=== PATIENT | male | born 1980 | race Caucasian/White ===

== ENCOUNTER 2017-04-21 04:16 | Emergency (ER) | payer OTHER ==
[~2017-04-21] VITALS: Ht 185.4 cm; Wt 113.6 kg
[2017-04-21] MEDS ORDERED: ONDANSETRON 2MG/ML, 2ML IVPush ONE (05:00)
[2017-04-21] MEDS ORDERED: HYDROmorphone 1 MG/ML, 1ML IVPush PRN (05:00)
[2017-04-21] MEDS ORDERED: SODIUM CHLORIDE 0.9% 1,000ML IVBOLUS ONE (05:00)
[2017-04-21] MEDS ORDERED: SODIUM CHLORIDE FLUSH 10ML SYR IVF ONE (05:00)
[2017-04-21] MEDS ORDERED: HYDROmorphone 1 MG/ML, 1ML ONE (05:11)
[2017-04-21] MEDS ORDERED: ONDANSETRON 2MG/ML, 2ML ONE (05:11)
[2017-04-21 05:25] LABS: HEMATOCRIT 45.3 % (39.2-51.8); WHITE BLOOD COUNT 13.6 x10^3/uL (3.4-10)
[2017-04-21 05:36] LABS: BLOOD UREA NITROGEN 11 mg/dL (7-18)
[2017-04-21 05:39] LABS: ASPARTATE AMINO TRANSFERASE 18 U/L (15-37)
[2017-04-21 05:40] LABS: IS PT STATUS REG ER OR PRE ER? YES
[2017-04-21] MEDS ORDERED: DICYCLOMINE 10 MG/ML, 2ML IM ONE (06:30)
[2017-04-21] MEDS ORDERED: OMNIPAQUE 350 MG/ML, 100ML BOTTLE ONE (06:42)
[2017-04-21 08:40] VITALS: BP 127/74
== END 2017-04-21 08:43 | disposition home or self-care (01) ==
LOC: ED 05:33
DX: R10.84 Generalized abdominal pain (principal); R11.2 Nausea with vomiting, unspecified; Z88.0 Allergy status to penicillin
CPT/HCPCS: 36415; 71010; 71275; 74175; 74176; 80053; 81003; 83690; 84484; 85025; 93005; 96361; 96372; 96374; 96375; 99285; J0500; J1170; J2405; J7030; Q9967